=== PATIENT | male | born 2000 | race Caucasian/White ===

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

== ENCOUNTER 2021-08-23 19:20 | Emergency (ER) | payer OTHER, SELFPAY ==
[2021-08-23 19:21] VITALS: BP 140/75; PULSE 87; RESP 18; TEMP 37.1; O2SAT 97; BMI 28.8
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
== END 2021-08-23 19:50 | disposition home or self-care (01) ==
LOC: ED 19:48
PROVIDERS: Emergency Provider Emergency Medicine; Visit Provider Emergency Medicine
DX: S39.012A Strain of muscle, fascia and tendon of lower back, initial encounter (principal); V43.52XA Car driver injured in collision with other type car in traffic accident, initial encounter; Y93.89 Activity, other specified; Y99.8 Other external cause status; Y92.411 Interstate highway as the place of occurrence of the external cause
CPT/HCPCS: 99282